=== PATIENT | male | born 1995 | race Caucasian/White ===

== ENCOUNTER → 2018-06-08 15:23 | Outpatient (CLI) | payer MEDICAID, SELFPAY ==
--- NOTE | 2018-06-08 15:30 | CT_ITS ---
STUDY: CT RIGHT WRIST WITHOUT CONTRAST REASON FOR EXAM: Male, 22 years old. Fracture RADIATION DOSAGE (If Supplied By Facility): CTDIvol = ( 24.58 ) mGy, DLP = ( 462.27 ) mGycm TECHNIQUE: Transaxial CT imaging of the right wrist was performed. Sagittal and coronal images were reconstructed. Individualized dose optimization techniques were used for this CT. COMPARISON: None. FINDINGS: There is fracture of the distal radius extending to the radiocarpal articulation, series 3 image through . There is displacement of 0.1 cm. Normal visualized ulna. Normal visualized carpal bones. Normal carpal articulations. Normal visualized metacarpals. The soft tissue structures are unremarkable. There is casting material. CT/Extremity Upper without Contra IMPRESSION: Intra-articular distal radius fracture. Electronically Signed: Zana Gorman MD at 16:46 EST , Service support ,
--- OUTSIDE RECORDS SUMMARY | 2018-08-10 21:35 | XMS RPT_ITS ---
:1995 Author Organization [facility] Care Team Providers Name Role Phone NAVEEN SPAULDING Admitting Unavailable NAVEEN SPAULDING Attending Unavailable SELF, REFERRED Referring Unavailable SELF, REFERRED Primary Care Unavailable [place] Procedure Practitioner Unavailable KIRILL KWONG Surgeon Unavailable CA Procedure Practitioner Unavailable MARION BLEDSOE Surgeon Unavailable Remy Thurman Attending Unavailable Remy Thurman Referring Unavailable oRsa Hilton Primary Care Unavailable PROBLEMS PROBLEMS DATE TYPE CONDITION / CODE ATTENDING STATUS SOURCE 06/02/2018 Active Unknown / NAVEEN SPAULDING Active [facility] [place] UNK(Unknown) of [facility] Repository 06/02/2018 Admitting OTH INTARTIC NAVEEN SPAULDING Active [facility] Diagnosis FRACTURE OF LOWER of [place] END OF [facility] RADIUS, INIT / Repository S52.571A(ICD-10) 06/02/2018 Final Diagnosis OTH INTARTIC NAVEEN SPAULDING Active [facility] [place] (Discharge) FRACTURE OF LOWER of [place] END OF [facility] RADIUS, INIT / Repository S52.571A(ICD-10) 06/02/2018 Final Diagnosis DISP FX OF RIGHT NAVEEN SPAULDING Active [facility] [place] (Discharge) ULNA STYLOID of [place] PROCESS, INIT FOR [facility] CLOS FX / Repository S52.611A(ICD-10) 06/02/2018 Final Diagnosis OVEREXERTION FROM NAVEEN SPAULDING Active [facility] [place] (Discharge) STRENUOUS MOVEMENT of [place] OR LOAD, INIT / [facility] X50.0XXA(ICD-10) Repository 06/02/2018 Final Diagnosis ACTIVITY, SOCCER / NAVEEN SPAULDING Active [facility] [place] (Discharge) Y93.66(ICD-10) of [facility] Repository 06/02/2018 Working Unknown / NAVEEN SPAULDING Active [facility] Diagnosis UNK(Unknown) of [facility] Repository 06/02/2018 Unknown OTH INTARTIC NAVEEN SPAULDING Active [facility] [place] FRACTURE OF LOWER of [place] END OF RIGHT [facility] RADIUS, INIT / Repository S52.571A(ICD-10) PROCEDURES PROCEDURES DATE CODE DESCRIPTION STATUS SOURCE 06/02/2018 75762([facility]) APPLY FOREARM SPLINT Completed [facility] Repository 06/02/2018 93061([facility]) EMERGENCY DEPT VISIT Completed [facility] Repository RESULTS RESULTS EXTREMITY UPPER Observed: 06/08/2018 Status: F Source: [place] WITHOUT CONTRA 3:31 PM [facility] REPOSITORY [facility] Imaging Services [address] [place] [address] Extremity Upper without Contra MR#: [id number] Acct: [id number] Name: NADYA NAZARIO Rep #: [id number] : 1995 M 22 From: Zana Gorman MD PCP: Rosa Hilton MD Status: REG CLI Study: Extremity Upper without Contra Date of Exam: 06/08/18 Exam# [id number] Ordering Dr: Remy Thurman PA-C STUDY: CT RIGHT WRIST WITHOUT CONTRAST REASON FOR EXAM: Male, 22 years old. Fracture RADIATION DOSAGE (If Supplied By Facility): CTDIvol = ( 24.58 ) mGy, DLP = ( 462.27 ) mGycm TECHNIQUE: Transaxial CT imaging of the right wrist was performed. Sagittal and coronal images were reconstructed. Individualized dose optimization techniques were used for this CT. COMPARISON: None. FINDINGS: There is fracture of the distal radius extending to the radiocarpal articulation, series 3 image through . There is displacement of 0.1 cm. Normal visualized ulna. Normal visualized carpal bones. Normal carpal articulations. Normal visualized metacarpals. The soft tissue structures are unremarkable. There is casting material. CT/Extremity Upper without Contra IMPRESSION: Intra-articular distal radius fracture. Electronically Signed: Zana Gorman MD at 16:46 EST , Service support , CC: Rosa Hilton MD; Remy CURRIE [employer] Security Assessment: Signed CONSULTATION Observed: 06/04/2018 Status: F Source: THE 12:16 AM [facility] REPOSITORY MR#: [id number] [facility] Pt. Name: Nadya Nazario Date of Service: 06/02/2018 Room #: DANIEL Birthdate: 1995 Referring Physician: CONSULTATION REASON FOR CONSULTATION: Distal radius fracture. HISTORY OF PRESENT ILLNESS: This is a 22-year-old male who injured his wrist last night while playing soccer. He states he hyperextended his wrist and was immediately painful and swollen, however, he went home and went to sleep despite the pain. He woke up this morning in much less pain, however, he recognized that something may have been wrong, and noted decreased range of motion. He came to the ED for evaluation where x-ray showed fracture, and Orthopedics was consulted. He states he has not had any numbness or tingling, weakness or skin changes and denies any other injury associated with the event. PAST MEDICAL HISTORY: None. CURRENT MEDICATIONS: None. ALLERGIES: None. SOCIAL HISTORY: Does not smoke, social alcohol, no other drug use. FAMILY HISTORY: Noncontributory. LAB DATA: Reviewed. REVIEW OF SYSTEMS: As stated in the HPI. PHYSICAL EXAM: GENERAL: The patient is in no acute distress, A and O x3, good insight. RIGHT UPPER EXTREMITY: Compartment soft, no obvious deformity, no overlying skin changes, minimal swelling, sensation intact to light touch in median, ulnar, and radial distributions, AIN, PIN, ulnar nerve motor function intact, radial pulse 2+ and symmetric. IMAGING: X-rays of the hand and wrist on the right show a mildly displaced intraarticular fracture of the distal radius as well as a mildly displaced ulnar styloid fracture. IMPRESSION: A 22-year-old male with right distal radius and ulnar styloid fracture. PLAN: No reduction was necessary after discussing the case with Dr. Kwong. He would like to follow up with him in 2 days in clinic, and needed to be immobilized until then. 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 Therefore, it was decided to put him into a radial gutter splint, and the patient was given instructions to avoid supination, pronation, and wrist abduction and abduction, and he was given a sling to wear as needed to reinforce this. This splint was applied with adequate padding, no plaster was noted to be in contact with the skin, the patient tolerated the procedure very well. He was given splint instructions, told to be nonweightbearing with that hand, and given followup instructions. Post splint application, his neurovascular exam was unchanged. Electronically Signed by: Kirill Kwong M.D. 06/06/2018 10:42 A Kirill Kwong M.D. I was not present but assume all responsibility for the exam. NOT BILLABLE Date Dict: 06/03/2018/02:11 P/Maico Fernandez MD Date Trans: 06/04/2018 12:16 A/aubrie [id number] WRIST RIGHT 3 VWS Observed: 06/02/2018 Status: F Source: [facility] 4:46 PM OF [facility] REPOSITORY Order Comment: R/O FX, hyperextension injury [facility] Department of Radiology [address] [place] [id number] Patient Name: NADYA NAZARIO : 1995 Sex: M Age: Race: White Pt. Location: [facility] Patient Status: E Ordered Date: 06/02/2018 4:30:00 PM Completed Date: 06/02/2018 04:46 PM Requesting Provider: NAVEEN SPAULDING Attending Provider: NAVEEN SPAULDING Report Copy To: Signs & Symptoms: Pain ( specify Location) History: Patient history not available Comments: R/O FX, hyperextension injury Exam: WRIST RIGHT 3 VWS WRIST RIGHT 3 S 06/02/2018 4:46 PM EST SIGNS AND SYMPTOMS: Pain ( specify Location) TECHNOLOGIST COMMENTS: injured right wrist playing soccer today pain in right wrist QUESTION FOR THE RADIOLOGIST: R/O FX, hyperextension injury PROTOCOL: AP,Lateral and Oblique views were obtained. COMPARISON: None FINDINGS: Soft tissues: Soft tissue swelling around the right wrist. Bones: Minimally displaced intra-articular transverse fracture of the distal right radius. Mildly displaced chip fracture at the ulnar styloid process. Joints: Satisfactory alignment of the radiocarpal joint. IMPRESSION: 1. Mildly displaced intra-articular transverse fracture of the distal right radius. 2. Mildly displaced chip fracture at the ulnar styloid process. 3. Soft tissue swelling around the right wrist. Approved by:Min Acharya on 06/02/2018 5:12 PM EST. I, Argelia Arshad, have reviewed the images and report and concur with these findings. Electronically signed by:Argelia Arshad. Transcribed by: [email or web address], User Resident: MIN ACHARYA Electronically Signed by: ARGELIA ARSHAD @ 06/02/2018 05:35 PM I personally read this/these film(s) with this resident ALLERGIES ALLERGIES DATE TYPE / CODE NAME / CODE REACTION SEVERITY SOURCE 06/02/2018 Miscellaneous No Known [facility] [place] [facility][id number][facility] ENCOUNTERS ENCOUNTERS ADMIT/DISCHARGE ACCOUNT NUMBER ADMITTING ENCOUNTER LOCATION SOURCE CLASS 06/08/2018 [id number] [facility] ding:CT Repository 06/02/2018/06/02/19 [id number] Demarco SPAULDING [address] Repository PAYERS PAYERS ENCOUNTER GUARANTOR PAYER SUBSCRIBER SOURCE 06/08/2018 NADYA RAMIREZ Primary Insurance:[facility] NADYA Tian [place] [address] [address] [facility] [place]: [id number] [id number] Repository [address]Oib: [phone]) Date:[id number] [phone] () [address] [place] [address]QN: 06/08/[address] [facility] Insurance:SELF PAY [facility] Number: Effective Repository Date:2018-06-08 06/02/2018 NADYA Primary Insurance: NADYA [facility] MEDICAIDPolicy MILLERDOB: [facility] [id number] N Number: [id number] [place] [address], [id number] [address] Repository [place] [address]Sew: Date:Plan Name:O [place], [address] [place] [address] [place] [address]Ldz: () [phone]: [phone] (HP)
== END ==
PROVIDERS: Family Provider Pediatrics; PCP Pediatrics; Referring Provider Physician Assistant; Visit Provider Physician Assistant
DX: S52.571A Other intraarticular fracture of lower end of right radius, initial encounter for closed fracture (principal)
CPT/HCPCS: 73200